=== PATIENT | male | born 1970 | race Hispanic/Latino ===

== ENCOUNTER 2020-05-16 06:26 | Day surgery (SDC) | payer OTHER ==
[2020-05-14 09:35] VITALS: BP 148/83
[2020-05-14 10:19] LABS: BASOPHILS % (AUTO) 0.3 % (0.0-5.0); EOSINOPHILS % (AUTO) 2.3 % (0.0-8.0); HEMATOCRIT 50.4 % (42-54); LYMPHOCYTES % (AUTO) 22.5 % (21.0-51.0); MEAN CORPUSCULAR HEMOGLOBIN 29.4 pg (27.0-33.0); MEAN CORPUSCULAR HGB CONC 33.5 g/dL (32.0-36.0); MEAN CORPUSCULAR VOLUME 87.7 fL (79-99); MONOCYTES % (AUTO) 8.5 % (3.0-13.0); NEUTROPHILS % (AUTO) 66.1 % (40.0-77.0); PLATELET COUNT (AUTO) 309 K/uL (130-400); RED BLOOD CELL COUNT(AUTO) 5.75 MIL/uL (4.50-6.20); RED CELL DISTRIBUTION WIDTH 12.6 % (11.0-15.5); WHITE BLOOD COUNT (AUTO) 7.8 K/uL (4.8-10.8)
[2020-05-14 10:33] LABS: CREATININE 1.2 mg/dL (0.5-1.5)
[2020-05-14 10:54] LABS: POTASSIUM 3.8 mmol/L (3.5-5.1)
[~2020-05-16] VITALS: Ht 175.3 cm; Wt 83.9 kg
[2020-05-16] VITALS (16 sets, daily range): BP systolic 111–136; BP diastolic 57–89
[~2020-05-16 06:26] MED LIST: CEFAZOLIN SODIUM 1 GM VIAL IVP SCH
[2020-05-16] MEDS ORDERED: LACTATED RINGERS 1000ML 1,000 ML IV ONE (06:56)
[2020-05-16] MEDS ORDERED: SUCCINYLCHOLINE CHLORIDE 20 MG/ML 10 ML VIAL ONE (08:41)
[2020-05-16] MEDS ORDERED: LIDOCAINE PF 2% 5ML ABBOJECT ONE (08:41)
[2020-05-16] MEDS ORDERED: DEXAMETHASONE SOD PHOSPHATE 10MG/ML 1ML VIAL ONE (08:42)
[2020-05-16] MEDS ORDERED: PROPOFOL 10 MG/ML 20ML VIAL IV ONE (08:42)
[2020-05-16] MEDS ORDERED: GLYCOPYRROLATE 1 MG/5 ML SYRINGE ONE (08:42)
[2020-05-16] MEDS ORDERED: NEOSTIGMINE 5MG/5ML SYR IV ONE (08:42)
[2020-05-16] MEDS ORDERED: MIDAZOLAM HCL 1 MG/ML 2ML VIAL ONE (08:42)
[2020-05-16] MEDS ORDERED: ONDANSETRON HCL 4 MG/2 ML VIAL ONE (08:43)
[2020-05-16] MEDS ORDERED: ROCURONIUM 10MG/1ML SYR 10 MG/ML ML ONE (08:43)
[2020-05-16] MEDS ORDERED: FENTANYL CITRATE PF 50 MCG/1 ML 2ML VIAL ONE ×2 (08:43→09:39)
[2020-05-16] MEDS ORDERED: CEPH500B PO (10:07)
[2020-05-16] MEDS ORDERED: IBUP-2070 PO (10:07)
[2020-05-16] MEDS ORDERED: ACET1TAB25 PO (10:07)
[2020-05-16] MEDS ORDERED: KETOROLAC TROMETHAMINE 30MG/ML ONE (10:36)
[2020-05-16] MEDS ORDERED: MEPERIDINE-PF 25 MG/ML SYG ONE (10:37)
== END 2020-05-16 11:50 | disposition home or self-care (01) ==
LOC: DAH 06:26
PROVIDERS: ATTEND Orthopaedic Surgery
DX: S83.232A Complex tear of medial meniscus, current injury, left knee, initial encounter (principal); Z20.828 Contact with and (suspected) exposure to other viral communicable diseases; M22.42 Chondromalacia patellae, left knee; M25.562 Pain in left knee; X58.XXXA Exposure to other specified factors, initial encounter; Y93.89 Activity, other specified; Y92.89 Other specified places as the place of occurrence of the external cause
CPT/HCPCS: 29881; 36415; 80048; 85025; 87426; A4215; A4221; A4222; A4223; A4606; A4649 ×2; A4663; A4930; A6223; J0330; J0690; J1100; J1885; J2001; J2175; J2250; J2405; J2704; J2710; J3010 ×2; J3490; J7120 ×2; U0003